=== PATIENT | female | born 1950 | race Caucasian/White ===

== ENCOUNTER 2025-01-12 13:27 | Outpatient (CLI) | payer MEDICARE, OTHER | END 2025-01-12 23:59 | disposition home or self-care (01) | LOC: LAB 13:27 | PROVIDERS: ATTEND Surgery | DX: E03.9 Hypothyroidism, unspecified (principal); N95.1 Menopausal and female climacteric states | CPT/HCPCS: 36415; 82670; 84144; 84402; 84403; 84443 ==